=== PATIENT | female | born 1965 | race Caucasian/White ===

== ENCOUNTER 2017-06-27 13:15 | Emergency (ER) | payer OTHER ==
[~2017-06-27] VITALS: Ht 160 cm; Wt 61.2 kg
[~2017-06-27 13:15] MED LIST: ALPR2TAB1 PO; CARI350T PO; HYDR-4452 PO; LISINOPRIL
--- NOTE | 2017-06-27 13:15 | NUR ---
Patient CHUCHONadya ARIN, triaged by RN. Waiting for an available bed.
[2017-06-27 13:25] VITALS: BP 150/78
--- NOTE | 2017-06-27 13:47 | NUR ---
Patient transferred to bed 8 for further care. RN evaluating patient at bedside.
--- NOTE | 2017-06-27 13:58 | NUR ---
Patient being evaluated by Dr. Freitas at bedside.
--- NOTE | 2017-06-27 14:19 | NUR ---
while attempting to start IV, pt stated to rn "if you cant get blood, you dumb bitch, then don't do it", RN exited room to deesculate situation, called security, discharge rn notified and by bedside
--- NOTE | 2017-06-27 14:23 | NUR ---
Pt yelling and stating "You all dont' know what you're doing! let me use the phone and transfer me to [facility]." Pt refusing to have treatment done at this time. Charge nurse Kavon cee, security is at bedside.
--- NOTE | 2017-06-27 14:26 | NUR ---
Pt refusing IV insertion. Dr. Freitas made aware. Pt is okay with labs being drawn and EKG. Pt is refusing chest x-ray. Dr. Freitas aware.
--- NOTE | 2017-06-27 14:27 | NUR ---
Pt states "I don't want the x-ray I could be !" Dr. Freitas aware.
[2017-06-27 14:38] LABS: BASOPHILS # (AUTO) 0.2 K/uL (0.00-0.22); BASOPHILS % (AUTO) 2.1 % (0.0-2.0); EOSINOPHILS # (AUTO) 0.3 K/uL (0-0.4); EOSINOPHILS % (AUTO) 3.7 % (0.0-4.0); HEMATOCRIT 40.5 % (36-48); HEMOGLOBIN 13.3 g/dL (12.0-16.0); LYMPHOCYTES # (AUTO) 1.6 K/uL (2.5-16.5); LYMPHOCYTES % (AUTO) 21.2 % (20.5-51.1); MEAN CORPUSCULAR HEMOGLOBIN 30 pg (27-31); MEAN CORPUSCULAR HGB CONC 33 g/dL (33-37); MEAN CORPUSCULAR VOLUME 90 fL (80-94); MONOCYTES # (AUTO) 0.8 K/uL (0.8-1.0); MONOCYTES % (AUTO) 10.2 % (1.7-9.3); NEUTROPHILS # (AUTO) 4.8 K/uL (1.8-7.7); NEUTROPHILS % (AUTO) 62.8 % (42.2-75.2); PLATELET COUNT (AUTO) 225 K/uL (140-450); RED BLOOD CELL COUNT(AUTO) 4.51 MIL/uL (4.20-5.40); RED CELL DISTRIBUTION WIDTH 12.5 % (11.6-13.7); WHITE BLOOD COUNT (AUTO) 7.7 K/uL (4.8-10.8)
[2017-06-27 14:53] LABS: PARTIAL THROMBOPLASTIN TIME 21.9 secs (22-35.6); PROTHROMBIN TIME 9.7 secs (10.8-13.4)
[2017-06-27 14:57] LABS: ALBUMIN 3.5 g/dL (3.4-5.0); ANION GAP 9.4 (8-16); CARBON DIOXIDE 29.5 mmol/L (21-32); CREATININE 0.7 mg/dL (0.6-1.3); POTASSIUM 3.9 mmol/L (3.5-5.1); TOTAL BILIRUBIN 0.4 mg/dL (0.0-1.0); TOTAL PROTEIN, SERUM 6.7 g/dL (6.4-8.2)
--- NOTE | 2017-06-27 14:59 | NUR ---
Pt is calm and cooperative at this time. Pt requesting to have food. Dr. Freitas aware.
--- NOTE | 2017-06-27 15:19 | NUR ---
Food tray set at bedside. Pt assisted in sitting position to eat her lunch. Tolerating well.
[2017-06-27] MEDS ORDERED: oxyCODONE/APAP 5/325 MG 1 TAB TAB PO ONE (15:40)
[2017-06-27] MEDS ORDERED: KETOROLAC 30 MG/ML VIAL IM ONE (15:40)
--- NOTE | 2017-06-27 15:40 | NUR ---
Pt states "Since I'm not , can I get a prescription of my pain medications? I take [place] 10-325's and Soma 350." Dr. Freitas made aware. Verbal order to give pain medication here prior to discharge and patient to receive a prescription for pain medication. Pt updated on status and verbalized understanding. Pt noted eating lunch and tolerating it well.
[2017-06-27] MEDS ORDERED: NITROFURANTOIN 100 MG CAP PO STA (15:41)
[2017-06-27 16:17] VITALS: BP 154/103
--- NOTE | 2017-06-27 16:19 | NUR ---
Patient discharged with v/s stable. Written and verbal after care instructions given and explained. Patient alert, oriented and verbalized understanding of instructions. Ambulatory with steady gait. All questions addressed prior to discharge. ID band removed. Patient advised to follow up with PMD. Rx of norco and soma given. Patient educated on indication of medication including possible reaction and side effects. Opportunity to ask questions provided and answered.
== END 2017-06-27 16:19 | disposition home or self-care (01) ==
LOC: MED 13:15
DX: N39.0 Urinary tract infection, site not specified (principal); M79.7 Fibromyalgia; B19.20 Unspecified viral hepatitis C without hepatic coma; F15.10 Other stimulant abuse, uncomplicated; Z88.0 Allergy status to penicillin; Z88.8 Allergy status to other drugs, medicaments and biological substances; Z71.6 Tobacco abuse counseling
CPT/HCPCS: 36415; 80053; 81002; 81025; 83880; 84484; 84702; 85025; 85610; 85730; 93005; 96372; 99285; J1885

== ENCOUNTER 2018-07-23 14:03 | Emergency (ER) | payer MEDICAID, OTHER ==
[~2018-07-23] VITALS: Ht 160 cm; Wt 63.5 kg
[~2018-07-23 14:03] MED LIST changes: +ACET-787 PO; -HYDR-4452 PO
[2018-07-23 14:05] VITALS: BP 159/94
--- NOTE | 2018-07-23 14:05 | NUR ---
TO BED #12 BY BATTERY BUILDER
--- NOTE | 2018-07-23 14:15 | NUR ---
PATIENT BIBA WITH C/O LEFT KNEE PAIN, S/P FALL X2 DAYS AGO, LIMPING WITH AMBULATION. HX: LT. LEG DVT. NON-COMPLIANCE WITH MEDICATIONS, MEDICATION RUN OUT PER PATIENT. DENIES N/V/D; SKIN IS PINK/WARM/DRY; LUNGS CLEAR BL; HR EVEN AND REGULAR; PT DENIES ANY FEVER, CP, SOB, OR COUGH AT THIS TIME; PATIENT STATES PAIN OF 10/10 AT THIS TIME; VSS; PATIENT POSITIONED FOR COMFORT; HOB ELEVATED; BEDRAILS UP X2; BED DOWN. ER MD MADE AWARE OF PT STATUS.
--- NOTE | 2018-07-23 14:38 | NUR ---
Patient being evaluated by physician at bedside.
[2018-07-23] MEDS ORDERED: KETOROLAC 60 MG/2 ML VIAL IM ONE (14:40)
[2018-07-23] MEDS ORDERED: MORPHINE SULFATE 4 MG/ML SYR IM ONE (15:35)
[2018-07-23 16:28] VITALS: BP 142/90
== END 2018-07-23 16:28 | disposition home or self-care (01) ==
LOC: MED 14:03
DX: M25.562 Pain in left knee (principal); I10 Essential (primary) hypertension; F17.290 Nicotine dependence, other tobacco product, uncomplicated; F12.10 Cannabis abuse, uncomplicated; Z88.0 Allergy status to penicillin; Z88.8 Allergy status to other drugs, medicaments and biological substances; Z79.899 Other long term (current) drug therapy
CPT/HCPCS: 73562; 81002; 81025; 96372; 99284; J1885; J2270

== ENCOUNTER 2018-09-13 08:39 | Emergency (ER) | payer MEDICAID, OTHER ==
[~2018-09-13] VITALS: Ht 160 cm; Wt 63.5 kg
--- NOTE | 2018-09-13 08:39 | NUR ---
PT BIBA BLS TO ER BED 12
[2018-09-13 08:40] VITALS: BP 152/105
--- NOTE | 2018-09-13 08:45 | NUR ---
WAS TRYING TO GET ASSESSMENT FROM PT, PT WAS AGGRESSIVE AND KEEP USING FOUL LANGUAGE.
--- NOTE | 2018-09-13 08:52 | NUR ---
PT STATES "I'M GOING TO ANOTHER HOSPITAL" AND WALKED OUT ER AMBULANCE DOOR. NO CARE PROVIDED BY ER MD
== END 2018-09-13 08:52 | disposition left against medical advice (07) ==
LOC: MED 08:39
DX: O03.9 Complete or unspecified spontaneous abortion without complication (principal); Z53.21 Procedure and treatment not carried out due to patient leaving prior to being seen by health care provider

== ENCOUNTER 2021-12-07 18:32 | Emergency (ER) | payer OTHER ==
[~2021-12-07] VITALS: Ht 160 cm; Wt 63.5 kg
[~2021-12-07 18:32] MED LIST changes: -ACET-787 PO; +HYDR-5191 PO
[2021-12-07 18:47] VITALS: BP 136/91
[2021-12-07] MEDS ORDERED: NACL 0.9% 1,000 ML IV ONE (19:00)
[2021-12-07] MEDS ORDERED: KETOROLAC 30 MG/ML VIAL IVP ONE (20:10)
[2021-12-07 20:23] LABS: BASOPHILS # (AUTO) 0.1 K/uL (0.00-0.22); BASOPHILS % (AUTO) 0.5 % (0.0-2.0); EOSINOPHILS # (AUTO) 0.2 K/uL (0-0.4); EOSINOPHILS % (AUTO) 1.7 % (0.0-4.0); HEMATOCRIT 40.9 % (36-48); HEMOGLOBIN 13.9 g/dL (12.0-16.0); LYMPHOCYTES # (AUTO) 1.9 K/uL (2.5-16.5); LYMPHOCYTES % (AUTO) 15.3 % (20.5-51.1); MEAN CORPUSCULAR HEMOGLOBIN 30 pg (27-31); MEAN CORPUSCULAR HGB CONC 34 g/dL (33-37); MEAN CORPUSCULAR VOLUME 88.2 fL (80-94); MONOCYTES # (AUTO) 0.8 K/uL (0.8-1.0); MONOCYTES % (AUTO) 6.5 % (1.7-9.3); NEUTROPHILS # (AUTO) 9.4 K/uL (1.8-7.7); PLATELET COUNT (AUTO) 409 K/uL (140-450); RED BLOOD CELL COUNT(AUTO) 4.64 MIL/uL (4.20-5.40); RED CELL DISTRIBUTION WIDTH 12.4 % (11.6-13.7); WHITE BLOOD COUNT (AUTO) 12.4 K/uL (4.8-10.8)
[2021-12-07 20:50] LABS: PROTHROMBIN TIME 9.2 secs (10.8-13.4)
[2021-12-07 20:52] LABS: ALBUMIN 3.6 g/dL (3.4-5.0); ANION GAP 12.6 (8-16); CREATININE 0.8 mg/dL (0.6-1.3); POTASSIUM 3.6 mmol/L (3.5-5.1); TOTAL BILIRUBIN 0.3 mg/dL (0.0-1.0)
[2021-12-07] MEDS ORDERED: AMPICILLIN/SULBACTAM 3 GM VIAL IM ONE (21:10)
[2021-12-07] MEDS ORDERED: KETOROLAC 30 MG/ML VIAL ONE (21:41)
[2021-12-07] MEDS ORDERED: SULF-59 PO (21:48)
[2021-12-07] MEDS ORDERED: CEPH-588 PO (21:49)
[2021-12-07] MEDS ORDERED: cefTRIAXone 1,000 MG in LIDOCAINE MPF 1% 2.1 ML IM ONE (22:00)
[2021-12-07] MEDS ORDERED: LIDOCAINE MPF 1% 5 ML ONE (22:10)
[2021-12-07] MEDS ORDERED: cefTRIAXone 1,000 MG VIAL ONE (22:10)
--- NOTE | 2021-12-07 23:21 | NUR ---
IV removed, catheter intact and site benign. Applied folded 4x4 gauze and tape to stop bleeding.
--- NOTE | 2021-12-07 23:30 | NUR ---
PATIENT ELOPED FROM FACILITY. DISCHARGE INSTRUCTIONS NOT GIVEN TO PATIENT. DR. LAMBERT NOTIFIED.
== END 2021-12-07 23:30 | disposition left against medical advice (07) ==
LOC: MED 18:32
DX: L03.116 Cellulitis of left lower limb (principal); I10 Essential (primary) hypertension; F17.210 Nicotine dependence, cigarettes, uncomplicated; Z88.0 Allergy status to penicillin; Z88.1 Allergy status to other antibiotic agents
CPT/HCPCS: 36415; 80053; 83605; 84702; 85025; 85610; 85651; 85730; 86140; 96361; 96372; 96374; 99284; J0696; J1885; J2001